=== PATIENT | female | born 1975 | race Caucasian/White ===

== ENCOUNTER 2019-07-11 14:43 | Emergency (ER) | payer OTHER ==
[~2019-07-11] VITALS: Ht 157.5 cm; Wt 58.1 kg
[2019-07-11 14:52] VITALS: BP_SYST 144
[2019-07-11] MEDS ORDERED: LORazepam 1 MG TABLET PO ONE (15:00)
[2019-07-11 16:00] VITALS: BP_SYST 144
== END 2019-07-11 16:00 | disposition home or self-care (01) ==
LOC: SED 14:43
DX: J02.9 Acute pharyngitis, unspecified (principal)
CPT/HCPCS: 36415; 71045; 81025; 86403; 87081; 93005; 99285